=== PATIENT | female | born 1945 | race Caucasian/White ===

== ENCOUNTER → 2021-03-01 | Outpatient (CLI) | payer MEDICARE ==
[~2021-03-01] MED LIST: BACTROBAN OINT22 GM EXT; DOXYCYCLINE HY100 M2 PO
== END ==
LOC: EXRD 08:30
DX: N28.1 Cyst of kidney, acquired (principal)
CPT/HCPCS: 76775

== ENCOUNTER → 2021-05-27 | Outpatient (CLI) | payer MEDICARE | LOC: EXRD 05-24 11:30 | DX: M81.0 Age-related osteoporosis without current pathological fracture (principal) | CPT/HCPCS: 77080 ==

== ENCOUNTER → 2022-03-02 | Outpatient (CLI) | payer MEDICARE | LOC: KOH-I 13:56 | DX: R60.9 Edema, unspecified (principal) | CPT/HCPCS: 93970 ==